=== PATIENT | female | born 1990 | race Caucasian/White ===

== ENCOUNTER 2020-03-27 22:29 | Emergency (ER) | payer SELFPAY ==
[~2020-03-27] VITALS: Ht 162.6 cm; Wt 50.0 kg
[2020-03-27] MEDS ORDERED: PROMETHAZINE INJ 25 MG/ML VIAL (J2550) IV ONE (23:15)
[2020-03-27] MEDS ORDERED: NS 1,000 ML IV ONE (23:15)
[2020-03-27] MEDS ORDERED: ACETAMINOPHEN TAB 650MG DOSE (2X325MG) PO ONE (23:15)
[2020-03-27 23:41] LABS: BASO % 0.5 % (0.0-1.0); EOS % 0.2 % (0.0-3.0); HEMATOCRIT 38.1 % (36.0-47.0); HEMOGLOBIN 11.9 g/dl (12.0-15.5); LYMPH # 0.4 10^3/uL (1.5-5.0); LYMPH % 5.2 % (24.0-44.0); MEAN CORPUSCULAR HEMOGLOBIN 28.5 pg (27.0-33.0); MEAN CORPUSCULAR HGB CONC 31.2 g/dl (32.0-36.5); MEAN CORPUSCULAR VOLUME 91.1 fl (80.0-96.0); MONO # 0.1 10^3/uL (0.0-0.8); MONO % 0.6 % (0.0-5.0); NEUTROPHILS % 93.3 % (36.0-66.0); PLATELET COUNT, AUTOMATED 247 10^3/uL (150-450); RED BLOOD COUNT 4.18 10^6/uL (4.00-5.40); WHITE BLOOD COUNT 8.5 10^3/uL (4.0-10.0)
[2020-03-27 23:59] LABS: LIPASE 144 U/L (73-393)
[2020-03-28 00:05] LABS: HCG, SERUM QUALITATIVE NEGATIVE (NEGATIVE)
[2020-03-28 00:06] LABS: ACETAMINOPHEN LEVEL < 2.0 UG/ML (10.0-30.0); ALBUMIN 2.7 GM/DL (3.2-5.2); ALT/SGPT 52 U/L (12-78); BILIRUBIN,TOTAL 0.9 MG/DL (0.2-1.0); BLOOD UREA NITROGEN 11 MG/DL (7-18); CALCIUM LEVEL 7.8 MG/DL (8.5-10.1); CARBON DIOXIDE LEVEL 28 MEQ/L (21-32); CHLORIDE LEVEL 104 MEQ/L (98-107); CREATININE FOR GFR 0.73 MG/DL (0.55-1.30); GLOMERULAR FILTRATION RATE > 60.0 (>60); GLUCOSE, FASTING 88 MG/DL (70-100); POTASSIUM SERUM 3.4 MEQ/L (3.5-5.1); SALICYLATE LEVEL < 1.7 MG/DL (5.0-30.0); SODIUM LEVEL 137 MEQ/L (136-145); TOTAL PROTEIN 6.2 GM/DL (6.4-8.2)
[2020-03-28 00:07] LABS: ETHYL ALCOHOL (ETHANOL) < 0.003 % (0.000-0.010)
[2020-03-28] MEDS ORDERED: PROM25TA12 PO (01:36)
[2020-03-28] MEDS ORDERED: CLONI1TA PO (01:36)
[2020-03-28] MEDS ORDERED: cloNIDine 0.1 MG TAB PO ONE (01:45)
[2020-03-28 01:51] VITALS: BP 125/82
[2020-03-28] MEDS ORDERED: NS 1,000 ML IV ONE (02:15)
[2020-03-28] MEDS ORDERED: POTASSIUM CHLORIDE 10 MEQ SR TABLET PO ONE (02:15)
[2020-03-28 02:55] LABS: AMPHETAMINES LEVEL URINE NEGATIVE (NEGATIVE); BARBITURATES URINE NEGATIVE (NEGATIVE); BENZODIAZEPINES URINE NEGATIVE (NEGATIVE); CANNABINOIDS URINE NEGATIVE (NEGATIVE); COCAINE METABOLITE URINE NEGATIVE (NEGATIVE); METHADONE URINE NEGATIVE (NEGATIVE); OPIATES URINE POSITIVE (NEGATIVE); PHENCYCLIDINE URINE NEGATIVE (NEGATIVE)
[2020-03-28] MEDS ORDERED: hydrOXYzine 50 MG TAB PO STA (03:18)
[2020-03-28 03:24] VITALS: BP 91/57
[2020-03-28] MEDS ORDERED: KETOROLAC 30 MG/ML 1ML VIAL IV ONE (03:30)
--- NOTE | 2020-03-28 22:11 | ECGEPIP ---
[facility] - ED Test Date: 2020-03-27 Pat Name: RAYMUNDO MCCOY Department: Room: - Gender: Female [employer] Strategist: NATALIYA : 1990 Requested By: MODESTA Orellana Order Number: [id number] Reading MD: Timi Fernandez Measurements Intervals [place] Rate: 118 P: [place]: 0 QRS: 97 QRSD: 102 T: 63 QT: 304 QTc: 426 Interpretive Statements ATRIAL FLUTTER/TACHYCARDIA WITH RAPID VENTRICULAR RESPONSE RIGHT AXIS DEVIATION INCOMPLETE RIGHT BUNDLE BRANCH BLOCK NO PRIORS FOR COMPARISON Electronically Signed on 03-28-2020 22:11:18 EDT by Timi Fernandez
== END 2020-03-28 03:34 | disposition home or self-care (01) ==
LOC: EDBD 22:29 → M ED 22:29
DX: F11.23 Opioid dependence with withdrawal (principal); I45.19 Other right bundle-branch block
CPT/HCPCS: 80053; 80307; 83690; 84702; 84703; 85025; 93005; 93041; 94760; 96374; 96375; 99285; G0480; J1885